=== PATIENT | female | born 1950 | race Two or more races ===

== ENCOUNTER 2020-11-16 22:44 | Emergency (ER) | payer OTHER ==
[~2020-11-16] VITALS: Ht 160 cm; Wt 77.1 kg
== END 2020-11-17 12:38 | disposition home or self-care (01) ==
LOC: ER 22:44
DX: K52.89 Other specified noninfective gastroenteritis and colitis (principal); E87.6 Hypokalemia; R19.7 Diarrhea, unspecified; Z03.818 Encounter for observation for suspected exposure to other biological agents ruled out

== ENCOUNTER 2022-02-21 07:19 | Emergency (ER) | payer OTHER ==
[~2022-02-21] VITALS: Ht 162.6 cm; Wt 99.8 kg
== END 2022-02-21 13:34 | disposition home or self-care (01) ==
LOC: ER 07:19
DX: S01.01XA Laceration without foreign body of scalp, initial encounter (principal); W18.30XA Fall on same level, unspecified, initial encounter; Y93.89 Activity, other specified; Y92.038 Other place in apartment as the place of occurrence of the external cause; I10 Essential (primary) hypertension; Z88.6 Allergy status to analgesic agent

== ENCOUNTER 2024-01-08 06:13 | Emergency (ER) | payer OTHER ==
[~2024-01-08] VITALS: Ht 162.6 cm; Wt 86.2 kg
[~2024-01-08 06:13] MED LIST: GLUMETZA500 MG PO; ORPHENADRINE C100 MG PO; SKELAGESIC PO; TOPROL XL25 M1 PO
[2024-01-08] MEDS ORDERED: PLAVIX75 MG (06:30)
[2024-01-08] MEDS ORDERED: LIPITOR80 MG PO (06:30)
[2024-01-08] MEDS ORDERED: HYOSCYAMINE0.125 M2 PO (06:31)
[2024-01-08] MEDS ORDERED: MEPERIDINE HCL/PF 25 MG/ML VIAL IM STA (06:53)
[2024-01-08] MEDS ORDERED: HYOSCYAMINE SULFATE 0.125 MG TAB.SUBL SL STA (06:54)
[2024-01-08] MEDS ORDERED: 0.9 % SODIUM CHLORIDE 1,000 ML IV ONE (07:00)
[2024-01-08 07:03] LABS: URINE APPEARANCE Cloudy; URINE BILIRRUBIN Negative (NEGATIVE); URINE BLOOD Moderate; URINE COLOR Yellow; URINE GLUCOSE Negative (NEGATIVE); URINE LEUKOCYTE Small; URINE NITRATE Negative; URINE PROTEIN Trace (NEGATIVE); URINE UROBILINOGEN 0.2 E.U./dl
[2024-01-08 07:04] LABS: URINE BACTERIA 5639.6 uL (0.0-1933); URINE EPITHELIAL CELLS 51.1 uL (0.0-38.8); URINE RBC 65.3 uL (0.0-20.8); URINE WBC 149.1 uL (0.0-23.2)
[2024-01-08 07:47] LABS: HEMATOCRIT 36.8 % (36.0-45.00); HEMOGLOBIN 12.3 g/dL (12.0-15.00); MEAN CELL VOLUME 85.6 fL (80.00-100.00); MEAN CORPUSCULAR HEMOGLOBIN 28.7 pg (27.00-32.0); MEAN CORPUSCULAR HGB CONC 33.5 g/dl (32.0-36.0); PLATELET COUNT 224 K/uL (150-450); RED BLOOD COUNT 4.29 M/uL (4.00-6.00); RED CELL DISTRIBUTION WIDTH 14.8 % (11.5-14.5)
[2024-01-08 08:20] LABS: INR 1.04; PARTIAL THROMBOPLASTIN TIME 21.9 SECONDS (22.0-34.0); PROTHROMBIN TIME 10.9 SECONDS (9.0-11.5)
[2024-01-08 08:30] LABS: ALBUMIN 3.2 gm/dL (3.4-5.0); BILIRUBIN TOTAL 1.06 mg/dL (0.3-1.2); BILIRUBIN,CONJUGATED 0.4 mg/dL (0.0-0.2); BILIRUBIN,UNCONJUGATED 0.66 mg/dL (0.0-0.6); CALCIUM 8.9 mg/dL (8.5-10.1); CREATININE SERUM 0.79 mg/dL (0.55-1.02); GFR 70.95; GLOBULINA 3.9 G/DL (2.4-3.5); POTASSIUM 3.46 mEq/L (3.5-5.1); TOTAL PROTEIN 7.1 gm/dL (6.4-8.2)
[2024-01-08] MEDS ORDERED: LEVSIN/SL0.125 MG SL (11:51)
[2024-01-08] MEDS ORDERED: PEPCID AC20 MG PO (11:51)
[2024-01-08] MEDS ORDERED: CIPRO500 MG PO (11:51)
[2024-01-08] MEDS ORDERED: INTESTINEX680 M1 PO (11:51)
[2024-01-08] MEDS ORDERED: METRONIDAZOLE500 MG PO (11:51)
== END 2024-01-08 13:06 | disposition home or self-care (01) ==
LOC: ER 06:13
PROVIDERS: General Practice
DX: R10.32 Left lower quadrant pain (principal)
CPT/HCPCS: 36415; 74176; 96365; 99283; J3490; J7030